=== PATIENT | female | born 1930 | race Caucasian/White ===

== ENCOUNTER 2017-08-17 15:46 | Inpatient (IN) | payer MEDICARE, BC ==
[~2017-08-17] VITALS: Ht 165.1 cm; Wt 65.4 kg
[2017-08-17] MEDS ORDERED: POLYETHYLENE GLYCOL 17 GM PACKET PO PRN (18:00)
[2017-08-17] MEDS ORDERED: BISACODYL 10 MG SUPP PR PRN (18:00)
[2017-08-17] MEDS ORDERED: ONDANSETRON 2MG/ML, 2ML IVPush PRN (18:00)
[2017-08-17 20:09] VITALS: BP 158/80
[2017-08-17] MEDS ORDERED: ASPI-496 PO (20:35)
[2017-08-17] MEDS ORDERED: CARV3.1212 PO (20:35)
[2017-08-17] MEDS ORDERED: ENOX40SY4 SQ (20:35)
[2017-08-17] MEDS ORDERED: GUAI237S4 PO (20:35)
[2017-08-17] MEDS ORDERED: IPRA12.9 INH (20:35)
[2017-08-17] MEDS ORDERED: LACT1CAP5 PO (20:35)
[2017-08-17] MEDS: SODIUM CHLORIDE FLUSH 10ML SYR IVF SCH (20:36)
[2017-08-17] MEDS: KETOROLAC 30 MG/1 ML IVPush PRN (21:19)
[2017-08-17] MEDS: GUAIFENESIN/DM 200-20MG, 10ML UDC PO SCH (22:30)
[2017-08-17] MEDS: ENOXAPARIN 40 MG/0.4 ML SQ SCH ×2 (22:30→22:36)
[2017-08-17] MEDS: IPRATROPIUM 0.5 MG/2.5 ML INHA NPPB SCH (22:30)
[2017-08-18] MEDS: GUAIFENESIN/DM 200-20MG, 10ML UDC PO SCH ×5 (02:30→20:36)
[2017-08-18 03:36] VITALS: BP 123/76
[2017-08-18 04:07] LABS: BASOPHILS # (AUTO) 0.07 x10^3/uL (0-0.1); BASOPHILS % (AUTO) 1 % (0-1); EOSINOPHILS # (AUTO) 0.35 x10^3/uL (0-0.4); EOSINOPHILS % (AUTO) 4 % (1-7); LYMPHOCYTES # (AUTO) 2.37 x10^3/uL (1-3.4); LYMPHOCYTES % (AUTO) 28 % (22-44); MD NO; MEAN CORPUSCULAR HEMOGLOBIN 30.8 pg (27.0-34.8); MEAN CORPUSCULAR HGB CONC 33.4 g/dL (32.4-35.8); MEAN CORPUSCULAR VOLUME 92.3 fL (80-100); MEAN PLATELET VOLUME 8.4 fL (7.4-10.4); MONOCYTES # (AUTO) 0.61 x10^3/uL (0.2-0.8); MONOCYTES % (AUTO) 7 % (2-9); NEUTROPHILS # (AUTO) 4.96 x10^3/uL (1.8-6.8); NEUTROPHILS % (AUTO) 59 % (42-75); PLATELET COUNT 344 x10^3/uL (130-400); RED BLOOD COUNT 3.99 x10^6/uL (3.82-5.3); RED CELL DISTRIBUTION WIDTH 14.8 % (9.6-15.2)
[2017-08-18 04:20] LABS: CHLORIDE 110 mmol/L (98-107)
[2017-08-18 04:26] LABS: ALANINE AMINOTRANSFERASE 17 U/L (12-78); ALBUMIN 3.2 g/dL (3.4-5.0); ALKALINE PHOSPHATASE 75 U/L (45-117); ANION GAP 9 mmol/L (5-15); BILIRUBIN,TOTAL 0.8 mg/dL (0.2-1.0); CREATININE 1.08 mg/dL (0.55-1.02); TOTAL PROTEIN 6.3 g/dL (6.4-8.2)
[2017-08-18] MEDS: IPRATROPIUM 0.5 MG/2.5 ML INHA NPPB SCH ×2 (06:00→10:54)
[2017-08-18] MEDS ORDERED: ASPIRIN 81 MG TABLET EC PO SCH (06:00)
[2017-08-18 08:08] VITALS: BP 146/79
[2017-08-18] MEDS: SENNA/DOCUSATE TABLET PO SCH (09:00)
[2017-08-18] MEDS: METHOCARBAMOL 750 MG TABLET PO PRN ×2 (09:13→18:03)
[2017-08-18] MEDS: CARVEDILOL 3.125 MG TABLET PO SCH ×2 (09:13→20:35)
[2017-08-18] MEDS: LACTOBACILLUS CHEW TABLET PO SCH (09:13)
[2017-08-18] MEDS: SODIUM CHLORIDE FLUSH 10ML SYR IVF SCH ×2 (09:13→20:35)
[2017-08-18 14:00] VITALS: BP 114/71
[2017-08-18 17:00] LABS: BASOPHILS # (AUTO) 0.05 x10^3/uL (0-0.1); BASOPHILS % (AUTO) 1 % (0-1); EOSINOPHILS # (AUTO) 0.29 x10^3/uL (0-0.4); EOSINOPHILS % (AUTO) 4 % (1-7); LYMPHOCYTES # (AUTO) 1.89 x10^3/uL (1-3.4); LYMPHOCYTES % (AUTO) 25 % (22-44); MD NO; MEAN CORPUSCULAR HGB CONC 33.5 g/dL (32.4-35.8); MEAN CORPUSCULAR VOLUME 92.7 fL (80-100); MEAN PLATELET VOLUME 8.1 fL (7.4-10.4); MONOCYTES # (AUTO) 0.57 x10^3/uL (0.2-0.8); MONOCYTES % (AUTO) 8 % (2-9); NEUTROPHILS # (AUTO) 4.63 x10^3/uL (1.8-6.8); NEUTROPHILS % (AUTO) 62 % (42-75); PLATELET COUNT 331 x10^3/uL (130-400); RED BLOOD COUNT 3.98 x10^6/uL (3.82-5.3); RED CELL DISTRIBUTION WIDTH 15.1 % (9.6-15.2)
[2017-08-18 17:05] LABS: INTERNATIONAL NORMALIZED RATIO 1.03 (0.93-1.1); PROTHROMBIN TIME 10.6 Seconds (9.6-11.5)
[2017-08-18 17:08] LABS: ANION GAP 9 mmol/L (5-15); CHLORIDE 108 mmol/L (98-107); CREATININE 0.98 mg/dL (0.55-1.02)
[2017-08-18 18:49] VITALS: BP 127/73
[2017-08-19] MEDS: METHOCARBAMOL 750 MG TABLET PO PRN (00:06)
[2017-08-19 00:14] VITALS: BP 127/70
[2017-08-19] MEDS: GUAIFENESIN/DM 200-20MG, 10ML UDC PO SCH ×6 (01:30→21:30)
[2017-08-19] MEDS: POTASSIUM CHLORIDE 20 MEQ in SODIUM CHLORIDE 0.45% 1,000 ML IV SCH ×3 (04:18→20:00)
[2017-08-19] MEDS: LACTOBACILLUS CHEW TABLET PO SCH (07:15)
[2017-08-19] MEDS: SENNA/DOCUSATE TABLET PO SCH (07:15)
[2017-08-19 08:11] VITALS: BP 174/90
[2017-08-19] MEDS: CARVEDILOL 3.125 MG TABLET PO SCH ×2 (08:16→21:43)
[2017-08-19] MEDS: KETOROLAC 30 MG/1 ML IVPush PRN (08:16)
[2017-08-19] MEDS: SODIUM CHLORIDE FLUSH 10ML SYR IVF SCH ×3 (09:00→21:43)
[2017-08-19 12:55] VITALS: BP 148/77
[2017-08-19] MEDS ORDERED: EPINEPHRINE 1 MG/ML, 1ML ONE (13:25)
[2017-08-19] MEDS ORDERED: VANCOMYCIN 1,000 MG ONE ×2 (13:25→16:16)
[2017-08-19] MEDS ORDERED: BACITRACIN 50,000 UNIT ONE (13:25)
[2017-08-19] MEDS ORDERED: BUPIVACAINE/PF 0.5% ONE (13:25)
[2017-08-19] MEDS ORDERED: THROMBIN 20,000 UNIT VIAL TP ONE ×2 (13:25→16:44)
[2017-08-19] MEDS ORDERED: FENTANYL PF 250 MCG/5ML ONE (15:28)
[2017-08-19] MEDS ORDERED: PROPOFOL 50 ML ONE ×2 (15:33→17:45)
[2017-08-19] MEDS ORDERED: LIDOCAINE-MPF 2% ,5ML ONE (15:54)
[2017-08-19] MEDS ORDERED: EPHEDRINE 50 MG/ML, 1ML ONE (15:54)
[2017-08-19] MEDS ORDERED: PHENYLEPHRINE 10 MG/ML ONE (15:54)
[2017-08-19] MEDS ORDERED: TRANEXAMIC ACID 100 MG/ML, 10ML ONE (16:30)
[2017-08-19] MEDS ORDERED: BUPIVACAINE/PF-EPI 0.5% 1:200K INFIL ONE (16:44)
[2017-08-19] MEDS ORDERED: VANCOMYCIN 1,000 MG IM ONE (16:44)
[2017-08-19] MEDS ORDERED: HYDROcodone/APAP 7.5-325MG/15ML UDC PO PRN (17:00)
[2017-08-19] MEDS ORDERED: hydrALAzine 20 MG/ML, 1ML IV PRN (17:00)
[2017-08-19] MEDS ORDERED: DIAZEPAM 5 MG/ML, 2ML IVPush PRN (17:00)
[2017-08-19] MEDS ORDERED: ONDANSETRON 2MG/ML, 2ML IVPush PRN (17:00)
[2017-08-19] MEDS ORDERED: ACETAMINOPHEN 325 MG TABLET PO PRN ×2 (17:00→21:30)
[2017-08-19] MEDS ORDERED: ALBUTEROL/IPRATROPIUM 2.5MG/0.5MG, 3 ML NPPB PRN (17:00)
[2017-08-19] MEDS ORDERED: METOPROLOL 1 MG/ML, 5ML IV PRN (17:00)
[2017-08-19] MEDS ORDERED: MIDAZOLAM 1 MG/ML, 2ML IV PRN (17:00)
[2017-08-19] MEDS ORDERED: OMNIPAQUE 180 MG/ML, 20ML VIAL ONE (18:47)
[2017-08-19] MEDS ORDERED: DEXAMETHASONE 4 MG/ML, 1ML ONE (18:56)
[2017-08-19] MEDS ORDERED: PROPOFOL 10 MG/ML, 20ML ONE (18:56)
[2017-08-19] MEDS ORDERED: ONDANSETRON 2MG/ML, 2ML ONE (18:56)
[2017-08-19] MEDS ORDERED: CEFAZOLIN 1,000 MG ONE (18:56)
[2017-08-19] MEDS ORDERED: SUCCINYLCHOLINE 20 MG/ML, 10ML ONE (18:56)
[2017-08-19] MEDS ORDERED: OXYcodone 5 MG/5 ML ORAL.SOL UDC ONE (19:10)
[2017-08-19] MEDS ORDERED: FENTANYL PF 100 MCG/2ML ONE (19:44)
[2017-08-19] MEDS ORDERED: HYDROcodone/APAP 7.5-325MG/15ML UDC ONE (19:44)
[2017-08-19] MEDS: FENTANYL PF 100 MCG/2ML IV PRN ×2 (19:46→19:58)
[2017-08-19] MEDS ORDERED: HYDROmorphone 2 MG/ML, 1ML ONE (19:51)
[2017-08-19] MEDS: HYDROmorphone 1 MG/ML, 1ML IV PRN ×2 (19:54→20:13)
[2017-08-19 20:45] VITALS: BP 153/83
[2017-08-19] MEDS ORDERED: PHARMACY MAY ADJ FOR RENAL FX MC PRN (21:00)
[2017-08-19] MEDS ORDERED: KETOROLAC 30 MG/1 ML IVPush PRN (21:00)
[2017-08-19] MEDS ORDERED: D5%-0.9% NACL+KCL 20MEQ 1,000 ML IV SCH (21:00)
[2017-08-19] MEDS ORDERED: ZOLPIDEM 5MG TABLET PO PRN (21:00)
[2017-08-19] MEDS ORDERED: morphine SULFATE 10 MG/ML, 1ML IVPush PRN (21:00)
[2017-08-19] MEDS ORDERED: morphine SULFATE 10 MG/ML, 1ML IV PRN (21:30)
[2017-08-19] MEDS ORDERED: BISACODYL 10 MG SUPP PR PRN (21:30)
[2017-08-19] MEDS ORDERED: DIAZEPAM 5 MG TABLET PO PRN (21:30)
[2017-08-19] MEDS ORDERED: OXYcodone IR 5MG TABLET PO PRN ×2 (21:30)
[2017-08-19] MEDS ORDERED: DIAZEPAM 5 MG/ML, 2ML IV PRN (21:30)
[2017-08-19] MEDS ORDERED: KETOROLAC 30 MG/1 ML IV PRN (21:30)
[2017-08-19] MEDS ORDERED: MAGNESIUM HYDROXIDE 8%, 30ML UDC PO PRN (21:30)
[2017-08-19] MEDS ORDERED: LORazepam 1MG TABLET PO PRN (21:30)
[2017-08-19] MEDS ORDERED: LABETALOL 5MG/ML, 20ML IV PRN (21:30)
[2017-08-19] MEDS ORDERED: DIPHENHYDRAMINE 50 MG/ML, 1ML IVPush PRN (21:30)
[2017-08-19] MEDS ORDERED: ACETAMINOPHEN 650 MG SUPP PR PRN (21:30)
[2017-08-19] MEDS ORDERED: PROMETHAZINE 25 MG/ML, 1ML IM PRN (21:30)
[2017-08-19] MEDS ORDERED: DIPHENHYDRAMINE 50 MG/ML, 1ML IM PRN (21:30)
[2017-08-19] MEDS ORDERED: DIPHENHYDRAMINE 50 MG CAPSULE PO PRN (21:30)
[2017-08-19] MEDS: ONDANSETRON 2MG/ML, 2ML IV PRN (21:55)
[2017-08-19] MEDS: D5%-0.9% NACL+KCL 20MEQ 1,000 ML IV SCH (21:57)
[2017-08-19] MEDS: CEFAZOLIN PMX 1GM/50ML 50 ML IVPB SCH (23:57)
[2017-08-20 00:02] VITALS: BP 134/76
[2017-08-20] MEDS: GUAIFENESIN/DM 200-20MG, 10ML UDC PO SCH ×2 (00:35→04:33)
[2017-08-20 04:14] VITALS: BP 133/75
[2017-08-20] MEDS: POTASSIUM CHLORIDE 20 MEQ in SODIUM CHLORIDE 0.45% 1,000 ML IV SCH ×2 (04:33→16:04)
[2017-08-20 05:46] LABS: BASOPHILS # (AUTO) 0.01 x10^3/uL (0-0.1); BASOPHILS % (AUTO) 0 % (0-1); EOSINOPHILS % (AUTO) 0 % (1-7); LYMPHOCYTES # (AUTO) 0.59 x10^3/uL (1-3.4); LYMPHOCYTES % (AUTO) 4 % (22-44); MD NO; MEAN CORPUSCULAR HEMOGLOBIN 31.1 pg (27.0-34.8); MEAN CORPUSCULAR HGB CONC 33.7 g/dL (32.4-35.8); MEAN CORPUSCULAR VOLUME 92.3 fL (80-100); MEAN PLATELET VOLUME 8.2 fL (7.4-10.4); MONOCYTES # (AUTO) 0.52 x10^3/uL (0.2-0.8); MONOCYTES % (AUTO) 4 % (2-9); NEUTROPHILS # (AUTO) 13.44 x10^3/uL (1.8-6.8); NEUTROPHILS % (AUTO) 92 % (42-75); PLATELET COUNT 308 x10^3/uL (130-400); RED BLOOD COUNT 3.56 x10^6/uL (3.82-5.3); RED CELL DISTRIBUTION WIDTH 14.6 % (9.6-15.2)
[2017-08-20 05:53] LABS: ANION GAP 7 mmol/L (5-15); CHLORIDE 108 mmol/L (98-107)
[2017-08-20 05:55] LABS: CREATININE 0.99 mg/dL (0.55-1.02)
[2017-08-20 06:50] VITALS: BP 111/68
[2017-08-20] MEDS: SODIUM CHLORIDE FLUSH 10ML SYR IVF SCH ×4 (09:00→20:03)
[2017-08-20] MEDS: CEFAZOLIN PMX 1GM/50ML 50 ML IVPB SCH (09:18)
[2017-08-20] MEDS: D5%-0.9% NACL+KCL 20MEQ 1,000 ML IV SCH ×3 (09:27→22:49)
[2017-08-20] MEDS: CARVEDILOL 3.125 MG TABLET PO SCH ×2 (10:42→20:02)
[2017-08-20] MEDS: SENNA/DOCUSATE TABLET PO SCH (10:51)
[2017-08-20] MEDS: LACTOBACILLUS CHEW TABLET PO SCH (10:51)
[2017-08-20] MEDS ORDERED: DEXAMETHASONE 4 MG/ML, 1ML IVPush PRN (11:00)
[2017-08-20 13:00] VITALS: BP 101/64
[2017-08-20] MEDS ORDERED: SODIUM CHLORIDE 0.9%, 500ML IVBOLUS ONE (16:30)
[2017-08-20 19:39] VITALS: BP 96/57
[2017-08-20 20:04] VITALS: BP 104/62
[2017-08-21] MEDS: POTASSIUM CHLORIDE 20 MEQ in SODIUM CHLORIDE 0.45% 1,000 ML IV SCH (02:00)
[2017-08-21 02:28] VITALS: BP 99/50
[2017-08-21 06:03] LABS: BASOPHILS # (AUTO) 0.01 x10^3/uL (0-0.1); BASOPHILS % (AUTO) 0 % (0-1); EOSINOPHILS # (AUTO) 0.19 x10^3/uL (0-0.4); EOSINOPHILS % (AUTO) 2 % (1-7); LYMPHOCYTES # (AUTO) 1.66 x10^3/uL (1-3.4); LYMPHOCYTES % (AUTO) 15 % (22-44); MD NO; MEAN CORPUSCULAR HEMOGLOBIN 31.1 pg (27.0-34.8); MEAN CORPUSCULAR HGB CONC 33.7 g/dL (32.4-35.8); MEAN CORPUSCULAR VOLUME 92.3 fL (80-100); MEAN PLATELET VOLUME 8.5 fL (7.4-10.4); MONOCYTES # (AUTO) 1.03 x10^3/uL (0.2-0.8); MONOCYTES % (AUTO) 9 % (2-9); NEUTROPHILS # (AUTO) 8.04 x10^3/uL (1.8-6.8); NEUTROPHILS % (AUTO) 74 % (42-75); PLATELET COUNT 268 x10^3/uL (130-400); RED BLOOD COUNT 3.04 x10^6/uL (3.82-5.3); RED CELL DISTRIBUTION WIDTH 15.1 % (9.6-15.2)
[2017-08-21 06:05] LABS: ANION GAP 6 mmol/L (5-15); CALCIUM 7.7 mg/dL (8.5-10.1); CHLORIDE 108 mmol/L (98-107)
[2017-08-21 06:07] LABS: CREATININE 0.81 mg/dL (0.55-1.02)
[2017-08-21 06:44] VITALS: BP 110/68
[2017-08-21] MEDS: CARVEDILOL 3.125 MG TABLET PO SCH ×2 (08:32→20:02)
[2017-08-21] MEDS: SENNA/DOCUSATE TABLET PO SCH (08:32)
[2017-08-21] MEDS: LACTOBACILLUS CHEW TABLET PO SCH (08:32)
[2017-08-21] MEDS: SODIUM CHLORIDE FLUSH 10ML SYR IVF SCH ×4 (08:36→20:06)
[2017-08-21] MEDS: HYDROcodone/APAP 5/325 TABLET PO PRN ×2 (11:33→14:59)
[2017-08-21 12:42] VITALS: BP 108/69
[2017-08-21] MEDS: ONDANSETRON 2MG/ML, 2ML IV PRN (17:51)
[2017-08-21] MEDS: ACETAMINOPHEN 500 MG TABLET PO PRN (20:03)
[2017-08-21 20:15] VITALS: BP 130/76
[2017-08-22 02:37] VITALS: BP 107/61
[2017-08-22 05:14] LABS: BASOPHILS # (AUTO) 0.02 x10^3/uL (0-0.1); BASOPHILS % (AUTO) 0 % (0-1); EOSINOPHILS # (AUTO) 0.24 x10^3/uL (0-0.4); EOSINOPHILS % (AUTO) 3 % (1-7); LYMPHOCYTES # (AUTO) 1.11 x10^3/uL (1-3.4); LYMPHOCYTES % (AUTO) 12 % (22-44); MD NO; MEAN CORPUSCULAR HEMOGLOBIN 31.5 pg (27.0-34.8); MEAN CORPUSCULAR VOLUME 92.8 fL (80-100); MEAN PLATELET VOLUME 8.6 fL (7.4-10.4); MONOCYTES # (AUTO) 0.86 x10^3/uL (0.2-0.8); MONOCYTES % (AUTO) 9 % (2-9); NEUTROPHILS # (AUTO) 7.23 x10^3/uL (1.8-6.8); NEUTROPHILS % (AUTO) 77 % (42-75); PLATELET COUNT 224 x10^3/uL (130-400); RED BLOOD COUNT 2.77 x10^6/uL (3.82-5.3); RED CELL DISTRIBUTION WIDTH 14.5 % (9.6-15.2)
[2017-08-22] MEDS: ACETAMINOPHEN 500 MG TABLET PO PRN (05:49)
[2017-08-22 07:25] VITALS: BP 99/54
[2017-08-22 08:00] VITALS: BP 106/72
[2017-08-22] MEDS: SODIUM CHLORIDE FLUSH 10ML SYR IVF SCH ×2 (09:00→09:22)
[2017-08-22] MEDS: SENNA/DOCUSATE TABLET PO SCH (09:22)
[2017-08-22] MEDS: CARVEDILOL 3.125 MG TABLET PO SCH (09:22)
[2017-08-22] MEDS: LACTOBACILLUS CHEW TABLET PO SCH (09:22)
[2017-08-22] MEDS ORDERED: CEPH-368 PO (11:16)
[2017-08-22] MEDS ORDERED: HYDR-3240 PO (11:16)
[2017-08-22 13:17] VITALS: BP 105/65
[2017-08-22 14:00] VITALS: BP 102/64
[2017-08-22 15:05] VITALS: BP 105/66
== END 2017-08-22 16:40 | DRG 478 ==
LOC: ED 17:11 → EDIP 17:12 → ED 17:28 → 4NOR 18:52
PROVIDERS: ADMIT Hospitalist; ATTEND Hospitalist
PROC: 0QU03JZ Supplement Lumbar Vertebra with Synthetic Substitute, Percutaneous Approach (ICD-10-PCS; 2017-08-19)
PROC: 01NB0ZZ Release Lumbar Nerve, Open Approach (ICD-10-PCS; 2017-08-19)
PROC: 4A11X4G Monitoring of Peripheral Nervous Electrical Activity, Intraoperative, External Approach (ICD-10-PCS; 2017-08-19)
PROC: 0QS03ZZ Reposition Lumbar Vertebra, Percutaneous Approach (ICD-10-PCS; principal; 2017-08-19 16:00)
PROC: 0QB00ZX Excision of Lumbar Vertebra, Open Approach, Diagnostic (ICD-10-PCS; 2017-08-19 16:00)
DX: M80.88XA Other osteoporosis with current pathological fracture, vertebra(e), initial encounter for fracture (principal); E44.0 Moderate protein-calorie malnutrition; N17.9 Acute kidney failure, unspecified; G83.9 Paralytic syndrome, unspecified; I10 Essential (primary) hypertension; M19.90 Unspecified osteoarthritis, unspecified site; M48.061 Spinal stenosis, lumbar region without neurogenic claudication; M47.26 Other spondylosis with radiculopathy, lumbar region; Z60.2 Problems related to living alone; Z90.49 Acquired absence of other specified parts of digestive tract; Z98.51 Tubal ligation status; Z68.24 Body mass index [BMI] 24.0-24.9, adult
CPT/HCPCS: 36415; 71045; 72100; 80048; 80053; 82962; 85025; 85610; 85730; 86850; 86900; 86923; 88307; 88311; 93005; 93306; 94640; 99285; C1713; J0171; J0690; J1100; J1170; J1650; J1885; J2270; J2405; J2704; J3010; J3370; J3480; J3490; J7644; Q9965; C1760; J0330; J2370; J7040